=== PATIENT | female | born 1985 | race Caucasian/White ===

== ENCOUNTER 2018-10-09 15:44 | Emergency (ER) | payer OTHER ==
[2018-10-09] MEDS: ACETAMINOPHEN 325 MG TAB PO (17:11)
[2018-10-09] MEDS: predniSONE 20 MG TAB PO (17:11)
[2018-10-09] MEDS: ALBUTEROL 0.083% (NEB) 2.5 MG/3 ML AMP HHN (17:33)
== END 2018-10-09 18:48 | disposition home or self-care (01) ==
LOC: FTE 15:44
DX: J06.9 Acute upper respiratory infection, unspecified (principal); J45.901 Unspecified asthma with (acute) exacerbation; Z85.41 Personal history of malignant neoplasm of cervix uteri
CPT/HCPCS: 94664; 99283-25